=== PATIENT | male | born 1990 | race Two or more races ===

== ENCOUNTER 2019-07-29 17:51 | Emergency (ER) | payer OTHER ==
[~2019-07-29] VITALS: Ht 180.3 cm; Wt 81.6 kg
[2019-07-29 17:55] VITALS: BP 118/55
--- NOTE | 2019-07-29 17:55 | NUR ---
ED Nurse Note: Pt from street and brought in by RA 861 due to abd pain x 2 days. No reports of N/V. Pt staes he had a "brain surgery" 2 weeks ago. No incision or sutures noted. Pt also c/o head "convulsions" when he sleeps. AAO x4, ambulatory with non labored breathing. Pt smells with a very bad body odor and clothes are soiled.
[2019-07-29 19:01] LABS: BASOPHILS % (AUTO) 0.4 % (0.0-2.0); EOSINOPHILS % (AUTO) 1.8 % (0.0-3.0); HEMATOCRIT 38.4 % (42.0-52.0); HEMOGLOBIN 12.4 G/DL (14.2-18.0); LYMPHOCYTES % (AUTO) 24.8 % (20.0-45.0); MEAN CORPUSCULAR VOLUME 85 FL (80-99); MONOCYTES % (AUTO) 4.7 % (1.0-10.0); NEUTROPHILS % (AUTO) 68.3 % (45.0-75.0); PLATELET COUNT 337 K/UL (150-450); RED CELL DISTRIBUTION WIDTH 14.2 % (11.6-14.8); WHITE BLOOD COUNT 8.9 K/UL (4.8-10.8)
--- NOTE | 2019-07-29 19:11 | Diagnostic Imaging Report ---
Indications: Seizure, headache Technique: Spiral acquisitions obtained through the brain. Angled axial and coronal 5 x 5 mm slices were reconstructed. Total dose length product 1018 mGycm. CTDI vol(s) 53 mGy. Dose reduction achieved using automated exposure control Comparison: None. Findings: No acute intracranial hemorrhage or edema. No mass effect nor midline shift. Normal marroquin-white differentiation. Normal size ventricles and extra axial CSF spaces. Visualized orbits and sinuses are unremarkable. The mastoids are clear. The calvarium is intact. Impression: Negative The CT scanner at [facility] is accredited by the [employer] and the scans are performed using protocols designed to limit radiation exposure to as low as reasonably achievable to attain images of sufficient resolution adequate for diagnostic evaluation.
--- NOTE | 2019-07-29 19:26 | NUR ---
HAND-OFF: Report given to ashley SIGALA.
[2019-07-29 19:36] LABS: ANION GAP 14 mmol/L (5-15); BLOOD UREA NITROGEN 15 mg/dL (7-18); CALCIUM 8.9 MG/DL (8.5-10.1); CARBON DIOXIDE 23 MMOL/L (21-32); CHLORIDE 107 MMOL/L (98-107); CREATININE 0.8 MG/DL (0.55-1.30); POTASSIUM 3.9 MMOL/L (3.5-5.1); SODIUM 144 MMOL/L (136-145)
[2019-07-29 19:40] LABS: ALANINE AMINOTRANSFERASE 59 U/L (12-78); ALBUMIN 2.9 G/DL (3.4-5.0); ALBUMIN/GLOBULIN RATIO 0.9 (1.0-2.7); ALKALINE PHOSPHATASE 87 U/L (46-116); ASPARTATE AMINO TRANSFERASE 24 U/L (15-37); BILIRUBIN,TOTAL 0.2 MG/DL (0.2-1.0)
--- NOTE | 2019-07-29 20:05 | NUR ---
ED Nurse Note: Patient urine specimen collected and sent down to lab. Per patient request, patient provided with water, a sandwich, chips and an orange. Will continue to monitor for lab results. patient resting comfortably A&ox4 with no complaints at this time.
[2019-07-29 20:11] LABS: APPEARANCE,URINE CLEAR; BILIRUBIN, URINE NEGATIVE (NEGATIVE); COLOR,URINE AMBER; GLUCOSE, URINE (UA) NEGATIVE (NEGATIVE); KETONES,URINE 1+ (NEGATIVE); LEUKOCYTE ESTERASE ,URINE 1+ (NEGATIVE); NITRITE,URINE NEGATIVE (NEGATIVE); PH,URINE 5 (4.5-8.0); PROTEIN,URINE NEGATIVE (NEGATIVE); UROBILINOGEN,URINE 1 MG/DL (0.0-1.0)
--- NOTE | 2019-07-29 21:05 | NUR ---
ED Nurse Note: Patient resting comfortably with no signs or symptoms of acute distress.
--- NOTE | 2019-07-29 21:40 | Emergency Room Report ---
History of Present Illness General Chief Complaint: Abdominal Pain Source: Patient, EMS Present Illness HPI Patient presents from the street. He is homeless. He states that he has noticed whenever he falls asleep he gets shaking and spasms in his muscles. He denies recent illness. Denies fever chills. Denies nausea or vomiting. He states he occasionally gets lightheaded. He does have a history of non-Hodgkin' s lymphoma and was treated 5 years ago with [facility]/Syl Gomez. He does not get regular follow-up with any physician. He has no other complaints. Allergies: Coded Allergies: No Known Allergies (Unverified , 07/29/19) Patient History Past Medical History: none, see triage record, other - Hx NHL Social History: Reports: drug use; Denies: smoking, alcohol use Reviewed Nursing Documentation: PMH: Agreed; PSxH: Agreed Nursing Documentation-PMH Past Medical History: No Stated History Review of Systems All Other Systems: negative except mentioned in HPI Physical Exam Vital Signs Date Time Temp Pulse Resp B/P (MAP) Pulse Ox O2 Delivery O2 Flow Rate FiO2 07/29/19 17:49 98.4 127 14 120/80 (93) 98 Room Air Sp02 EP Interpretation: reviewed, normal General Appearance: no apparent distress, alert, GCS 15, non-toxic, other - Poor personal hygiene Head: normocephalic, atraumatic Eyes: bilateral eye normal inspection, bilateral eye PERRL ENT: hearing grossly normal, normal pharynx, no angioedema, normal voice Neck: full range of motion, supple/symm/no masses Respiratory: chest non-tender, lungs clear, normal breath sounds, no respiratory distress, no retraction, no accessory muscle use, speaking full sentences Cardiovascular #1: regular rate, rhythm, no edema Gastrointestinal: normal bowel sounds, non tender, soft, non-distended, no guarding, no rebound Rectal: deferred Musculoskeletal: back normal, normal range of motion, gait/station normal, non- tender Neurologic: alert, motor strength/tone normal, oriented x3, sensory intact, responsive, speech normal Psychiatric: judgement/insight normal, memory normal, mood/affect normal, no suicidal/homicidal ideation Medical Decision Making Homeless Attestation The treating physician has assessed and agrees that the patient is medically stable for outpatient disposition. Diagnostic Impression: Primary Impression: Myoclonic jerking while sleeping Additional Impression: Amphetamine abuse ER Course This patient has sleep transition mild clonus. Laboratory work-up is unremarkable. The patient was given IV fluids and educated on the dangers of amphetamine abuse. I also educated the patient that given his history of non- Hodgkin's lymphoma that he should follow-up for repeat evaluation at [facility]. Laboratory Tests Test 07/29/19 18:52 07/29/19 19:50 White Blood Count 8.9 K/UL (4.8-10.8) Red Blood Count 4.50 M/UL (4.70-6.10) L Hemoglobin 12.4 G/DL (14.2-18.0) L Hematocrit 38.4 % (42.0-52.0) L Mean Corpuscular Volume 85 FL (80-99) Mean Corpuscular Hemoglobin 27.5 PG (27.0-31.0) Mean Corpuscular Hemoglobin Concent 32.2 G/DL (32.0-36.0) Red Cell Distribution Width 14.2 % (11.6-14.8) Platelet Count 337 K/UL (150-450) Mean Platelet Volume 6.2 FL (6.5-10.1) L Neutrophils (%) (Auto) 68.3 % (45.0-75.0) Lymphocytes (%) (Auto) 24.8 % (20.0-45.0) Monocytes (%) (Auto) 4.7 % (1.0-10.0) Eosinophils (%) (Auto) 1.8 % (0.0-3.0) Basophils (%) (Auto) 0.4 % (0.0-2.0) Sodium Level 144 MMOL/L (136-145) Potassium Level 3.9 MMOL/L (3.5-5.1) Chloride Level 107 MMOL/L (98-107) Carbon Dioxide Level 23 MMOL/L (21-32) Anion Gap 14 mmol/L (5-15) Blood Urea Nitrogen 15 mg/dL (7-18) Creatinine 0.8 MG/DL (0.55-1.30) Estimate Glomerular Filtration Rate > 60 mL/min (>60) Glucose Level 130 MG/DL (74-106) H Calcium Level 8.9 MG/DL (8.5-10.1) Total Bilirubin 0.2 MG/DL (0.2-1.0) Aspartate Amino Transferase (AST) 24 U/L (15-37) Alanine Aminotransferase (ALT) 59 U/L (12-78) Alkaline Phosphatase 87 U/L (46-116) Total Protein 6.1 G/DL (6.4-8.2) L Albumin 2.9 G/DL (3.4-5.0) L Globulin 3.2 g/dL Albumin/Globulin Ratio 0.9 (1.0-2.7) L Lipase 164 U/L (73-393) Serum Alcohol < 3 mg/dL Urine Color Brittany Urine Appearance Clear Urine pH 5 (4.5-8.0) Urine Specific [place] 1.025 (1.005-1.035) Urine Protein Negative (NEGATIVE) Urine Glucose (UA) Negative (NEGATIVE) Urine Ketones 1+ (NEGATIVE) H Urine Blood Negative (NEGATIVE) Urine Nitrite Negative (NEGATIVE) Urine Bilirubin Negative (NEGATIVE) Urine Ictotest Negative (NEGATIVE) Urine Urobilinogen 1 MG/DL (0.0-1.0) H Urine Leukocyte Esterase 1+ (NEGATIVE) H Urine RBC 0 /HPF (0 - 0) Urine WBC 5-10 /HPF (0 - 0) H Urine Squamous Epithelial Cells Occasional /LPF Urine Calcium Oxalate Crystals Many /LPF (NONE) Urine Bacteria Occasional /HPF (NONE) Urine Mucus Few /LPF (NONE/OCC) H Urine Opiates Screen Negative (NEGATIVE) Urine Barbiturates Screen Negative (NEGATIVE) Phencyclidine (PCP) Screen Negative (NEGATIVE) Urine Amphetamines Screen Positive (NEGATIVE) H Urine Benzodiazepines Screen Negative (NEGATIVE) Urine Cocaine Screen Negative (NEGATIVE) Urine Marijuana (THC) Screen Negative (NEGATIVE) CT/MRI/US Diagnostic Results CT/MRI/US Diagnostic Results : Imaging Test Ordered: CT head Impression No acute findings. Specifically no intracranial bleed, mass effect or edema. See official report. Last Vital Signs Date Time Temp Pulse Resp B/P (MAP) Pulse Ox O2 Delivery O2 Flow Rate FiO2 07/29/19 17:55 98.4 105 17 118/55 99 Room Air Status: improved Disposition: HOME, SELF-CARE Condition: Improved Scripts No Active Prescriptions or Reported Meds Referrals: NON PHYSICIAN (PCP) Floridalma Austin DO Jul 29, 2019 21:40
[2019-07-29 21:43] VITALS: BP 118/55
--- NOTE | 2019-07-29 21:43 | NUR ---
ER DISCHARGE NOTE: Patient is cleared to be discharged per ERMD, pt is aox4, on room air, with stable vital signs. pt was given dc and prescription instructions, pt was able to verbalize understanding, pt id band and iv site removed without complications. Patient provided with a clean shirt and shoes. . pt is able to ambulate with steady gait. pt took all belongings.
== END 2019-07-29 21:43 | disposition home or self-care (01) ==
LOC: EDBD 17:51 → EMR 19:13
DX: G25.3 Myoclonus (principal); G47.69 Other sleep related movement disorders; F15.10 Other stimulant abuse, uncomplicated; Z59.0 Homelessness; Z85.72 Personal history of non-Hodgkin lymphomas
CPT/HCPCS: 36415; 70450; 80053; 80307; 81003; 83690; 85025; G0480; Z7502; 99284

== ENCOUNTER → 2019-07-30 | Emergency (ER) | payer OTHER ==
[~2019-07-30] VITALS: Ht 180.3 cm; Wt 72.6 kg
[~2019-07-30] MED LIST: IBUPROFEN600 MG ORAL; LIDODERM700 M1 TOPIC
[2019-07-30 12:26] VITALS: BP 118/74
--- NOTE | 2019-07-30 12:30 | NUR ---
ED Nurse Note: pt. ambulated to ed; came back again saying "i had convultions again". Placed on chair, assessed pt to 'be speaking to himself'. will continue to monitor.
--- NOTE | 2019-07-30 14:05 | Emergency Room Report ---
History of Present Illness General Chief Complaint: General Complaint Source: Patient Present Illness HPI 29 YO male presents to the ED c/o another unwitnessed seizure earlier today. He states he was even convulsing while waiting for examination here in the ED. Pt. denies LOC. He denies ETOH use. He has hx of Meth use. Pt. Is not formally dx'd with seizures. Denies ever being examined by a neurologist. Denies neck pain/ stiffness or HARMAN with photophobia. Denies hx of TBI. Had a full work up this morning here in the ED. Pt. is not currently rx'd any anti-epileptic medications. Denies CP, SOB, LOC, AMS. He denies pain at this time. Pt. reports he is still having some residual shakiness. No other aggravating or relieving factors at this time. Denies weakness or inability to ambulate on his own. Allergies: Coded Allergies: No Known Allergies (Unverified , 07/29/19) Patient History Past Medical History: see triage record Past Surgical History: none Pertinent Family History: none Reviewed Nursing Documentation: PMH: Agreed; PSxH: Agreed Nursing Documentation-PMH Past Medical History: No History, Except For Hx Seizures: Yes Review of Systems All Other Systems: negative except mentioned in HPI Physical Exam Vital Signs Date Time Temp Pulse Resp B/P (MAP) Pulse Ox O2 Delivery O2 Flow Rate FiO2 07/30/19 12:23 98.2 100 18 118/74 (89) 99 Room Air Sp02 EP Interpretation: reviewed, normal General Appearance: no apparent distress, alert, GCS 15, non-toxic, other - mildly disheveled with poor hygiene Head: normocephalic, atraumatic Eyes: bilateral eye normal inspection, bilateral eye PERRL, bilateral eye other - no photophobia ENT: hearing grossly normal, normal voice Neck: full range of motion, no meningismus, no bony tend Respiratory: chest non-tender, lungs clear, normal breath sounds, no rhonchi, no respiratory distress, no accessory muscle use, no wheezing, speaking full sentences Cardiovascular #1: regular rate, rhythm Rectal: deferred, other - No visible evidence of soilage Genitourinary: normal inspection, other - NO evidence of recent urinary incontinence. Musculoskeletal: back normal, normal range of motion, gait/station normal, non- tender Neurologic: alert, motor strength/tone normal, oriented x3, sensory intact, responsive, speech normal, no focal defects, other - no nystagmus, normal finger to nose. Psychiatric: judgement/insight normal, memory normal Skin: other - Moderately contaminated, no abrasions or lacerations. Medical Decision Making PA Attestation Dr. Norwood Is my supervising Physician whom patient management has been discussed with. Diagnostic Impression: Primary Impression: Tremor due to substance abuse Additional Impression: Encounter for medical screening examination ER Course 29 YO male presents to the ED c/o another unwitnessed seizure earlier today. He states he was even convulsing while waiting for examination here in the ED. Pt. denies LOC. He denies ETOH use. He has hx of Meth use. Pt. Is not formally dx'd with seizures. Denies ever being examined by a neurologist. Denies neck pain/ stiffness or HARMAN with photophobia. Denies hx of TBI. Had a full work up this morning here in the ED. Pt. is not currently rx'd any anti-epileptic medications. Denies CP, SOB, LOC, AMS. He denies pain at this time. Pt. reports he is still having some residual shakiness. No other aggravating or relieving factors at this time. Denies weakness or inability to ambulate on his own. Ddx considered but are not limited to seizure, meningitis, infection, CVA/TIA, intracranial hemorrhage, intracranial process, benign essential tremor, drug- induced tremor, withdrawal symptoms, and malingering just to name a few. Vital signs: he is afebrile, vital signs are WNL, HR 100 in triage, 96 on EKG. H&PE are most consistent with Normal Physical Exam.-Patient is not in a post- ictal state, incontinent he has no oral trauma. Patient denies full loss of consciousness. No focal neurological deficits. Mild tremor on exam. NAD, non- toxic in appearance. ORDERS: No labs or imaging were ordered as patient just had labs and imaging performed less than 24 hours ago here in the emergency department and all were within normal range after reviewing Chart for this patient's previous visit. EKG shows 96 bpm NSR. ED INTERVENTIONS: -None required at this time. None required at this time.-I do not believe that this patient is having full tonic-clonic seizures as there are no evidence on physical exam. Patient is not in a post-ictal state, incontinent he has no oral trauma. Patient denies full loss of consciousness. I believe that this patient is inappropriately using the term "convulsions" to describe his symptoms of benign essential tremor -like movements most likely secondary to drug use. -I do not identify an emergent condition at this time. With current presentation , pt. is stable for close outpatient follow up and conservative treatment. D/ w pt. to return promptly to ED with worsening or new symptoms.- Pt. verbalizes' understanding and agreement with proposed treatment plan. DISCHARGE: At this time pt. is stable for d/c to home. Will provide printed patient care instructions, and any necessary prescriptions. Care plan and follow up instructions have been discussed with the patient prior to discharge. EKG Diagnostic Results EP Interpretation: Dr. Norwood Rate: normal - 96 bpm Rhythm: NSR ST Segments: no acute changes ASA given to the pt in ED: No PA Scribe Text This Interpretation was scribed by WANDA Perez. Last Vital Signs Date Time Temp Pulse Resp B/P (MAP) Pulse Ox O2 Delivery O2 Flow Rate FiO2 07/30/19 12:26 98.2 18 118/74 99 Room Air 07/30/19 12:26 100 Disposition: HOME, SELF-CARE Condition: Stable Scripts No Active Prescriptions or Reported Meds Referrals: [facility] + [facility] Patient Instructions: Essential Tremor, Medical Screening Exam Additional Instructions: Take medications as directed. Follow up with a Primary Care Provider in 3-5 days For a referral to have NEUROLOGIST Evaluation, even if your symptoms have resolved. --Please review list of primary care clinics, if you do not already have a primary care provider Return sooner to ED if new symptoms occur, or current symptoms become worse. - Please note that this Emergency Department Report was dictated using [email or web address] agent technology software, occasionally this can lead to erroneous entry secondary to interpretation by the dictation equipment. Noa Perez Jul 30, 2019 14:05
[2019-07-30 14:13] VITALS: BP 120/78
--- NOTE | 2019-07-30 14:13 | NUR ---
ER DISCHARGE NOTE: Patient is cleared to be discharged per ERMD, pt is aox3, on room air, with stable vital signs. pt was given dc and prescription instructions, pt was able to verbalize understanding, pt id band removed. pt is able to ambulate with steady gait. pt took all belongings.
== END | disposition home or self-care (01) ==
LOC: EMR 14:00
DX: G25.1 Drug-induced tremor (principal); T50.905A Adverse effect of unspecified drugs, medicaments and biological substances, initial encounter; F15.90 Other stimulant use, unspecified, uncomplicated; Y92.9 Unspecified place or not applicable; Z13.9 Encounter for screening, unspecified
CPT/HCPCS: 93005; Z7502; 99281

== ENCOUNTER 2019-08-09 20:44 | Emergency (ER) | payer OTHER ==
[~2019-08-09] VITALS: Ht 177.8 cm; Wt 72.6 kg
[2019-08-09 21:00] VITALS: BP 144/94
--- NOTE | 2019-08-09 21:00 | NUR ---
ED Nurse Note: Pt brought in by [facility] for c/o convulsions. Pt called [address] because he feels shaky and has convulsions when he tries to sleep. No witnessed seizure activity or s/s of seziure. Pt has hx of substance abuse. Pt is aaox4, no acute distress noted.
--- NOTE | 2019-08-09 21:54 | Emergency Room Report ---
History of Present Illness General Chief Complaint: Behavioral Complaint Source: Patient Present Illness HPI This 29-year-old male with no significant past medical history. He is with complaint of convulsion. He said he gets shaky whenever he lays down. He was here couple weeks ago for the same thing twice. No witnessed seizure. No history of seizure. Denies any other complaint. He called [address] Denies any pain. Does have a history of methamphetamine abuse. Allergies: Coded Allergies: No Known Allergies (Unverified , 07/29/19) Patient History Past Medical History: see triage record, old chart reviewed Past Surgical History: none Pertinent Family History: none Social History: Reports: smoking, drug use Immunizations: other Reviewed Nursing Documentation: PMH: Agreed; PSxH: Agreed Nursing Documentation-PMH Past Medical History: No History, Except For History Of Psychiatric Problem: Yes - Bipolar Hx Seizures: Yes Review of Systems Eye: Denies: eye pain, blurred vision ENT: Denies: ear pain, nose congestion, throat swelling Respiratory: Denies: cough, shortness of breath Cardiovascular: Denies: chest pain, palpitations Gastrointestinal: Denies: abdominal pain, diarrhea, nausea, vomiting Musculoskeletal: Denies: back pain, joint pain Skin: Denies: rash Neurological: Denies: headache, numbness Endocrine: Denies: increased thirst, increased urine Hematologic/Lymphatic: Denies: easy bruising All Other Systems: negative except mentioned in HPI Physical Exam Vital Signs Date Time Temp Pulse Resp B/P (MAP) Pulse Ox O2 Delivery O2 Flow Rate FiO2 08/09/19 20:46 97.0 100 16 144/94 (111) 99 Room Air Vitals unremarkable Sp02 EP Interpretation: reviewed, normal General Appearance: well appearing, no apparent distress, alert Head: normocephalic, atraumatic Eyes: bilateral eye PERRL, bilateral eye EOMI ENT: hearing grossly normal, normal pharynx Neck: full range of motion, supple, no meningismus Respiratory: chest non-tender, lungs clear, normal breath sounds Cardiovascular #1: regular rate, rhythm, no murmur Gastrointestinal: normal bowel sounds, non tender, no mass, no organomegaly, no bruit, non-distended Musculoskeletal: back normal, normal range of motion, gait/station normal Psychiatric: mood/affect normal Medical Decision Making Diagnostic Impression: Primary Impression: Tremor due to substance abuse ER Course Patient presents with "convulsion". I see no evidence of seizure activity. This is probably muscle spasm or jerking. No need for treatment. Will discharge home. No criteria for 5150. Last Vital Signs Date Time Temp Pulse Resp B/P (MAP) Pulse Ox O2 Delivery O2 Flow Rate FiO2 08/09/19 20:46 97.0 100 16 144/94 (111) 99 Room Air Status: unchanged Disposition: HOME, SELF-CARE Condition: Stable Scripts No Active Prescriptions or Reported Meds Additional Instructions: Follow up with your doctor in 7 days but return if worse. Stop using drugs. Colt Arias MD Aug 09, 2019 21:54
[2019-08-09 22:00] VITALS: BP 136/89
--- NOTE | 2019-08-09 22:00 | NUR ---
ER DISCHARGE NOTE: Patient is cleared to be discharged per ERMD, pt is aox4, on room air, with stable vital signs. pt was given dc instructions, pt was able to verbalize understanding, pt id band removed. pt is able to ambulate with steady gait. pt took all belongings.
== END 2019-08-09 22:00 | disposition home or self-care (01) ==
LOC: EDBD 20:44 → EDUNIT# 20:44 → EMR 21:13
DX: R25.1 Tremor, unspecified (principal); R56.9 Unspecified convulsions; F17.200 Nicotine dependence, unspecified, uncomplicated; G40.909 Epilepsy, unspecified, not intractable, without status epilepticus; F31.9 Bipolar disorder, unspecified
CPT/HCPCS: 99281

== ENCOUNTER 2019-08-10 08:21 | Emergency (ER) | payer OTHER ==
[~2019-08-10] VITALS: Ht 165.1 cm; Wt 74.8 kg
--- NOTE | 2019-08-10 08:39 | Emergency Room Report ---
History of Present Illness General Chief Complaint: General Complaint Source: Patient Present Illness HPI 29-year-old male presents with with with trouble concentrating x1 day no aggravating relieving factor severity is mild, constant patient has no other complaints states he want to be checked up Allergies: Coded Allergies: No Known Allergies (Unverified , 07/29/19) Patient History Past Medical History: see triage record Reviewed Nursing Documentation: PMH: Agreed; PSxH: Agreed Nursing Documentation-PMH History Of Psychiatric Problem: Yes - bipolar schizophrenia Hx Seizures: Yes Review of Systems All Other Systems: negative except mentioned in HPI Physical Exam Vital Signs Date Time Temp Pulse Resp B/P (MAP) Pulse Ox O2 Delivery O2 Flow Rate FiO2 08/10/19 08:23 98.2 79 16 132/75 (94) 100 Room Air Sp02 EP Interpretation: reviewed, normal General Appearance: well appearing, no apparent distress, alert Head: normocephalic, atraumatic Eyes: bilateral eye PERRL, bilateral eye EOMI ENT: uvula midline, moist mucus membranes Neck: supple, thyroid normal, supple/symm/no masses Respiratory: lungs clear, no respiratory distress, no retraction, no accessory muscle use Cardiovascular #1: normal peripheral pulses, regular rate, rhythm, no edema, no gallop, no murmur Gastrointestinal: non tender, soft, no guarding, no rebound Musculoskeletal: normal inspection Neurologic: alert, oriented x3 Psychiatric: mood/affect normal Skin: no rash, warm/dry Medical Decision Making Diagnostic Impression: Primary Impression: Encounter for medical screening examination ER Course 29-year-old male presents to the ED with trouble concentrating, differential diagnosis includes malingering, drug use, ADHD No acute emergencies at this time, patient appears to come to the ED when it rains currently is raining outside patient was sleeping comfortably prior to being interviewed Disposition home with return precautions follow-up with PCP Last Vital Signs Date Time Temp Pulse Resp B/P (MAP) Pulse Ox O2 Delivery O2 Flow Rate FiO2 08/10/19 08:23 98.2 79 16 132/75 (94) 100 Room Air Disposition: HOME, SELF-CARE Condition: Stable Scripts No Active Prescriptions or Reported Meds Referrals: [facility],REFERRING (PCP) [facility] Patient Instructions: Medical Screening Exam Additional Instructions: The patient was provided with discharge instructions, notified to follow-up with a primary care doctor and or specialist in the next 24-48 hours, and to return to the ED if they have worsening of their symptoms. Please note that this report is being documented using [employer] technology. This can lead to erroneous entry secondary to incorrect interpretation by the dictating instrument. Olaf Samano MD Aug 10, 2019 08:39
[2019-08-10 08:50] VITALS: BP 127/71
--- NOTE | 2019-08-10 08:50 | NUR ---
ED Nurse Note: Pt walked into ED for c/o difficulty concentrating. Pt is alert and orientedx4, drowsy. Pt has PERLLA. Pt denies being homeless and provided address for home. Pt denies nausea, vomiting. Dr Samano has seen pt.
[2019-08-10 09:02] VITALS: BP 135/76
--- NOTE | 2019-08-10 09:03 | NUR ---
ER DISCHARGE NOTE: Patient is cleared to be discharged per ERMD, pt is aox4, on room air, with stable vital signs. pt was given dc and prescription instructions, pt was able to verbalize understanding, pt id band removed. pt is able to ambulate with steady gait. pt took all belongings.
== END 2019-08-10 09:03 | disposition home or self-care (01) ==
LOC: EMR 08:31
DX: Z00.00 Encounter for general adult medical examination without abnormal findings (principal); G40.909 Epilepsy, unspecified, not intractable, without status epilepticus; F31.9 Bipolar disorder, unspecified
CPT/HCPCS: 99281

== ENCOUNTER 2019-08-16 19:23 | Emergency (ER) | payer OTHER ==
[~2019-08-16] VITALS: Ht 167.6 cm; Wt 63.5 kg
[2019-08-16 19:45] VITALS: BP 126/88
--- NOTE | 2019-08-16 19:45 | NUR ---
ED Nurse Note: Patient walked in c/o "convusions". pt stated he does not feel good and wants to be checked out. AAO xe4, VSS at this time.
--- NOTE | 2019-08-16 19:52 | Emergency Room Report ---
History of Present Illness General Chief Complaint: General Complaint Present Illness HPI 29-year-old male appears to be homeless who was just seen here [facility] for similar complaint here complaining of not feeling well in general for many months. Patient appears to come here on y days, does not know any past medical history, sitting comfortably with stable vital signs. Denies any recent travel, fever and chills. Denies chest pain. Denies drug use, tobacco smoke. COVID-19 risk:Travel to affect: No Has patient experienced fitch: No Allergies: Coded Allergies: No Known Allergies (Unverified , 07/29/19) Patient History Past Medical History: see triage record Past Surgical History: none Pertinent Family History: none Immunizations: UTD Reviewed Nursing Documentation: PMH: Agreed; PSxH: Agreed Nursing Documentation-PMH Hx Seizures: Yes Review of Systems All Other Systems: negative except mentioned in HPI Physical Exam Vital Signs Date Time Temp Pulse Resp B/P (MAP) Pulse Ox O2 Delivery O2 Flow Rate FiO2 08/16/19 19:30 98.1 96 16 126/88 (101) 98 Room Air Sp02 EP Interpretation: reviewed, normal General Appearance: no apparent distress, alert, GCS 15, non-toxic Head: normocephalic, atraumatic Eyes: bilateral eye normal inspection, bilateral eye PERRL ENT: hearing grossly normal, normal pharynx, no angioedema, normal voice Neck: full range of motion, supple/symm/no masses Respiratory: chest non-tender, lungs clear, normal breath sounds, speaking full sentences Cardiovascular #1: regular rate, rhythm, no edema Gastrointestinal: non tender, soft Rectal: deferred Genitourinary: no CVA tenderness Musculoskeletal: back normal Neurologic: alert, motor strength/tone normal, oriented x3, sensory intact, responsive, speech normal Psychiatric: judgement/insight normal, memory normal, mood/affect normal, no suicidal/homicidal ideation Skin: no rash Lymphatic: no adenopathy Medical Decision Making PA Attestation All my diagnosis and treatment plans were reviewed ad discussed with my supervising physician Dr. Austin Diagnostic Impression: Primary Impression: Encounter for medical screening examination ER Course 29-year-old male appears to be homeless who was just seen here [facility] for similar complaint here complaining of not feeling well in general for many months. Patient appears to come here on rainy days, does not know any past medical history, sitting comfortably with stable vital signs. Denies any recent travel, fever and chills. Denies chest pain. Denies drug use, tobacco smoke. Ddx considered but are not limited to: generalized anxiety disorder, panic attack, depression with psychotic feature, bipolar disorder, drug overdose Vital signs: are WNL, pt. is afebrile H&PE are most consistent with: Encounter for medical screening examination ORDERS: none required at this time, the diagnosis is clinical ED INTERVENTIONS: None required at this time. DISCHARGE: At this time pt. is stable for d/c to home. Will provide printed patient care instructions, and any necessary prescriptions. Care plan and follow up instructions have been discussed with the patient prior to discharge. Patient to follow primary care doctor Last Vital Signs Date Time Temp Pulse Resp B/P (MAP) Pulse Ox O2 Delivery O2 Flow Rate FiO2 08/16/19 19:30 98.1 96 16 126/88 (101) 98 Room Air Disposition: HOME, SELF-CARE Condition: Stable Scripts No Active Prescriptions or Reported Meds Additional Instructions: You need to follow-up with primary care doctor, you were seen here with the same complaint few days ago, this is chronic issue and just by saying that you have not generally been feeling well for several months your history, no fever, no other complaints and otherwise vital signs stable no further imaging is needed. Christianne Gregory Aug 16, 2019 19:52
[2019-08-16 20:00] VITALS: BP 126/88
--- NOTE | 2019-08-16 20:00 | NUR ---
ED Nurse Note: Pt cleared by health care Provider for discharge. DC instructions/prescription was given and explained to pt and verbalized understanding of teachings. All medical deviecs such as ID band removed. Pt is AAO x4, ambulatory and left with all personal belongings.
== END 2019-08-16 20:00 | disposition home or self-care (01) ==
LOC: EMR 20:00
DX: R69 Illness, unspecified (principal); Z59.0 Homelessness; G40.909 Epilepsy, unspecified, not intractable, without status epilepticus
CPT/HCPCS: 99281

== ENCOUNTER 2019-08-18 20:36 | Emergency (ER) | payer OTHER ==
[~2019-08-18] VITALS: Ht 157.5 cm; Wt 68.0 kg
[2019-08-18 20:52] VITALS: BP 130/88
--- NOTE | 2019-08-18 20:52 | NUR ---
ED Nurse Note: Pt walked in to ED from street c/o feeling foggy and head not being clear. Patient reports history of bipolar and does not take medication. Patient has strong body odor and appears to be transient but reports living with his brother. Denies pain or any discomfort. Alert adn orientedx4.
[2019-08-18 21:00] VITALS: BP 130/88
--- NOTE | 2019-08-18 21:00 | NUR ---
ED Nurse Note: Pt cleared by ERMD for discharge. DC instructions was given and explained to pt and verbalized understanding of teachings. All medical deviecs such as ID band removed. Pt is AAO x4, ambulatory and left with all personal belongings. Pt was provided snacks and placement options.
--- NOTE | 2019-08-18 21:00 | Emergency Room Report ---
History of Present Illness General Chief Complaint: Male Urogenital Problems Source: Patient Present Illness HPI Patient presents with complaints of 'fogginess' Patient reports that he would like a CAT scan Denies any chest pain denies any back or flank pain There was question of reporting shortness of breath to the triage however it denies that at this time Denies any cough denies any vomiting or diarrhea COVID-19 risk:Contact w/high r: No COVID-19 risk:Travel to affect: No Has patient experienced fitch: Yes Coronavirus symptoms experienc: Shortness of Breath Allergies: Coded Allergies: No Known Allergies (Unverified , 07/29/19) Patient History Past Medical History: see triage record Reviewed Nursing Documentation: PMH: Agreed; PSxH: Agreed Nursing Documentation-PMH History Of Psychiatric Problem: Yes - bipolar Hx Seizures: Yes Review of Systems All Other Systems: negative except mentioned in HPI Physical Exam Vital Signs Date Time Temp Pulse Resp B/P (MAP) Pulse Ox O2 Delivery O2 Flow Rate FiO2 08/18/19 20:45 97.7 93 16 130/88 (102) 98 Room Air Sp02 EP Interpretation: reviewed, normal General Appearance: well appearing, no apparent distress - However somewhat disheveled Head: normocephalic, atraumatic Eyes: bilateral eye PERRL, bilateral eye EOMI ENT: hearing grossly normal, normal pharynx, TMs + canals normal, uvula midline Neck: full range of motion, supple, no meningismus, no bony tend Respiratory: lungs clear, normal breath sounds, no rhonchi, no respiratory distress, no retraction, no accessory muscle use Cardiovascular #1: normal peripheral pulses, regular rate, rhythm, no edema, no gallop, no JVD, no murmur Gastrointestinal: normal bowel sounds, non tender, soft, no mass, no organomegaly, non-distended, no guarding, no hernia, no pulsatile mass, no rebound Musculoskeletal: normal inspection Neurologic: motor strength/tone normal, fisher purse seine III-XII nml as tested, oriented x3 , sensory intact, responsive Psychiatric: mood/affect normal Skin: no rash Lymphatic: normal inspection, no adenopathy Medical Decision Making Diagnostic Impression: Primary Impression: weakness ER Course Patient has a medical screening evaluation performed Multiple differentials including but not limited to neurological, neurosurgical , infectious process entertained on review of medical records patient has been here Several times in the recent past had CT imaging done also Less than a month ago Patient has a benign neurological exam as indicated does not meet criteria for further work-up and is encouraged to follow-up with primary physician Last Vital Signs Date Time Temp Pulse Resp B/P (MAP) Pulse Ox O2 Delivery O2 Flow Rate FiO2 08/18/19 20:45 97.7 93 16 130/88 (102) 98 Room Air Status: unchanged Disposition: HOME, SELF-CARE Condition: Stable Scripts No Active Prescriptions or Reported Meds Referrals: [facility] Patient Instructions: Weakness, [id number] Additional Instructions: Patient is provided with the discharge instructions notified to follow up with primary doctor in the next 2-3 days otherwise return to the er with any worsening symptoms. Please note that this report is being documented using Gather technology. This can lead to erroneous entry secondary to incorrect interpretation by the dictating instrument. Prema Palacios DO Aug 18, 2019 21:00
== END 2019-08-18 21:00 | disposition home or self-care (01) ==
LOC: EMR 21:00
DX: R53.1 Weakness (principal); G40.909 Epilepsy, unspecified, not intractable, without status epilepticus; F31.9 Bipolar disorder, unspecified; R06.02 Shortness of breath
CPT/HCPCS: 99281

== ENCOUNTER 2019-08-25 19:38 | Emergency (ER) | payer OTHER ==
[~2019-08-25] VITALS: Ht 172.7 cm; Wt 65.8 kg
[2019-08-25 19:50] VITALS: BP 128/76
--- NOTE | 2019-08-25 19:50 | NUR ---
ED Nurse Note: Pt ambulated into Ed from home CO lower back pain 01/09. Pt states that he is unsure how long the pain has lasted and cannot recall what caused the pain. ERMD at bedside, VSS no ss of distress noted.
[2019-08-25] MEDS ORDERED: Ketorolac 30mg Inj IM ONE (20:00)
--- NOTE | 2019-08-25 20:00 | NUR ---
ED Nurse Note: All medications administered, no ss of distress noted. no adverse reactions noted. minicog completed.
[2019-08-25] MEDS ORDERED: LIDODERM700 M1 TOPIC (20:13)
[2019-08-25] MEDS ORDERED: IBUPROFEN600 MG ORAL (20:13)
[2019-08-25 20:16] VITALS: BP 128/76
--- NOTE | 2019-08-25 20:16 | NUR ---
ER DISCHARGE NOTE: Patient is cleared to be discharged home per ERMD, pt is aox4, on room air, with stable vital signs. pt was given dc and prescription instructions, pt was able to verbalize understanding, pt id band removed. pt is able to ambulate with steady gait. pt took all belongings.
--- NOTE | 2019-08-31 21:50 | Emergency Room Report ---
History of Present Illness General Chief Complaint: Back Pain-No Injury Source: Patient Present Illness HPI 29-year-old male presents ED complaining of back pain. Is been having pain on and off for several weeks now. Did not fall or injure himself. Dull, 7 out of 10, nonradiating. Worse with twisting and bending. Denies any bowel or bladder incontinence. Denies any leg or motor weakness. No fevers or chills. No sick contacts or recent travel. No other aggravating relieving factors. No other associated symptoms Allergies: Coded Allergies: No Known Allergies (Unverified , 07/29/19) COVID-19 Screening Contact w/high risk pt: No Recent Travel to affected area: No Experienced COVID-19 symptoms?: Yes COVID-19 symptoms experienced: Shortness of Breath Patient History Past Medical History: seizures Past Surgical History: none Pertinent Family History: none Social History: Reports: drug use; Denies: smoking, alcohol use Immunizations: UTD Reviewed Nursing Documentation: PMH: Agreed; PSxH: Agreed Nursing Documentation-PMH Hx Seizures: Yes Review of Systems All Other Systems: negative except mentioned in HPI Physical Exam Sp02 EP Interpretation: reviewed, normal General Appearance: no apparent distress, alert, GCS 15, non-toxic Head: normocephalic, atraumatic Eyes: bilateral eye normal inspection, bilateral eye PERRL ENT: hearing grossly normal, normal pharynx, no angioedema, normal voice Neck: full range of motion, supple/symm/no masses Respiratory: chest non-tender, lungs clear, normal breath sounds, speaking full sentences Cardiovascular #1: regular rate, rhythm, no edema Cardiovascular #2: 2+ carotid (R), 2+ carotid (L), 2+ radial (R), 2+ radial (L) , 2+ dorsalis pedis (R), 2+ dorsalis pedis (L) Gastrointestinal: normal bowel sounds, non tender, soft, non-distended, no guarding, no rebound Rectal: deferred Genitourinary: normal inspection, no CVA tenderness Musculoskeletal: back normal, normal range of motion, gait/station normal, tender - paraspinal lumbar tenderness Neurologic: alert, motor strength/tone normal, oriented x3, sensory intact, responsive, speech normal Psychiatric: judgement/insight normal, memory normal, mood/affect normal, no suicidal/homicidal ideation Reflexes: 3+ bicep (R), 3+ bicep (L), 3+ tricep (R), 3+ tricep (L), 3+ knee (R) , 3+ knee (L) Lymphatic: no adenopathy Medical Decision Making Homeless Attestation I, The treating physician Dr. Fernando, have assessed and agrees that patient is medically stable for discharge to an outpatient disposition. Diagnostic Impression: Primary Impression: Back pain Qualified Codes: M54.5 - Low back pain; G89.29 - Other chronic pain ER Course Hospital Course 29-year-old male presents ED complaining of lower back pain. No evidence of trauma Differential diagnoses include: pyelonephritis, kidney stone, muscle strain, Lspine fracture Clinical course Patient placed on stretcher. After initial history exam reveals male in no acute distress. There is no midline tenderness. Paraspinal tenderness noted in the lumbar area. No swelling or bruising. No discoloration. No CVA tenderness. I ordered toradol and lidoderm for pain. Upon reassessment patient states pain has improved. homeless checklist completed. Safe for discharge for close outpatient follow-up. I will provide referrals Diagnosis - back pain Stable and discharged to home with prescription for motrin, lidoderm. Followup with PMD. Return to ED if symptoms recur or worsen Status: improved Disposition: HOME, SELF-CARE Condition: Stable Scripts No Active Prescriptions or Reported Meds Referrals: [facility]ERR[facility] (PCP) [facility] Patient Instructions: Back Pain, Adult Diego Fernando MD Aug 31, 2019 21:50
== END 2019-08-25 20:16 | disposition home or self-care (01) ==
LOC: EMR 19:50
DX: M54.5 Low back pain (principal); G89.29 Other chronic pain
CPT/HCPCS: 96372; J1885; Z7502; 99283

== ENCOUNTER 2019-08-29 14:15 | Emergency (ER) | payer OTHER ==
[~2019-08-29] VITALS: Ht 167.6 cm; Wt 63.5 kg
[2019-08-29 14:30] VITALS: BP 142/89
[2019-08-29 15:23] LABS: BASOPHILS % (AUTO) 1.1 % (0.0-2.0); EOSINOPHILS % (AUTO) 1.4 % (0.0-3.0); HEMOGLOBIN 13.9 G/DL (14.2-18.0); LYMPHOCYTES % (AUTO) 21.8 % (20.0-45.0); MEAN CORPUSCULAR VOLUME 84 FL (80-99); MONOCYTES % (AUTO) 5.4 % (1.0-10.0); NEUTROPHILS % (AUTO) 70.3 % (45.0-75.0); PLATELET COUNT 370 K/UL (150-450); RED BLOOD COUNT 5.01 M/UL (4.70-6.10); RED CELL DISTRIBUTION WIDTH 12.5 % (11.6-14.8); WHITE BLOOD COUNT 6.9 K/UL (4.8-10.8)
[2019-08-29 15:38] LABS: ANION GAP 12 mmol/L (5-15); BLOOD UREA NITROGEN 18 mg/dL (7-18); CALCIUM 9.1 MG/DL (8.5-10.1); CARBON DIOXIDE 23 MMOL/L (21-32); CHLORIDE 104 MMOL/L (98-107); CREATININE 0.8 MG/DL (0.55-1.30); POTASSIUM 4.5 MMOL/L (3.5-5.1); SODIUM 139 MMOL/L (136-145)
[2019-08-29 15:45] LABS: ALANINE AMINOTRANSFERASE 72 U/L (12-78); ALBUMIN 3.9 G/DL (3.4-5.0); ALBUMIN/GLOBULIN RATIO 1.1 (1.0-2.7); ALKALINE PHOSPHATASE 86 U/L (46-116); ASPARTATE AMINO TRANSFERASE 40 U/L (15-37); BILIRUBIN,TOTAL 0.2 MG/DL (0.2-1.0)
[2019-08-29] MEDS ORDERED: DICYCLOMINE HCL10 MG ORAL (16:22)
[2019-08-29] MEDS ORDERED: ONDANSETRON ODT4 MG BC (16:22)
[2019-08-29] MEDS ORDERED: OMEPRAZOLE20 M2 ORAL (16:22)
--- NOTE | 2019-09-01 07:11 | Emergency Room Report ---
History of Present Illness General Chief Complaint: Abdominal Pain Source: EMS Present Illness HPI Patient is a 29-year-old male who presents after increased epigastric pain. He reports having increased pain for 1 day. He denies any vomiting. Denies any recent alcohol intake. History is markedly limited by poor historian. Allergies: Coded Allergies: No Known Allergies (Unverified , 07/29/19) COVID-19 Screening Contact w/high risk pt: No Recent Travel to affected area: No Experienced COVID-19 symptoms?: No COVID-19 symptoms experienced: Shortness of Breath Patient History Past Medical History: see triage record Reviewed Nursing Documentation: PMH: Agreed; PSxH: Agreed Nursing Documentation-PMH Past Medical History: No Stated History Hx Seizures: Yes Review of Systems All Other Systems: negative except mentioned in HPI Physical Exam Vital Signs Date Time Temp Pulse Resp B/P (MAP) Pulse Ox O2 Delivery O2 Flow Rate FiO2 08/29/19 14:11 99.5 120 146/93 (110) Room Air 08/29/19 14:30 20 08/29/19 14:30 95 Sp02 EP Interpretation: reviewed, normal General Appearance: normal inspection, well appearing, no apparent distress, alert, GCS 15, non-toxic Head: atraumatic ENT: normal ENT inspection, hearing grossly normal, normal voice Neck: normal inspection, full range of motion, supple, no bony tend Respiratory: normal inspection, lungs clear, normal breath sounds, no respiratory distress, no retraction, no wheezing Cardiovascular #1: regular rate, rhythm, no edema Gastrointestinal: normal inspection, normal bowel sounds, non tender, soft, no guarding, no hernia Genitourinary: no CVA tenderness Musculoskeletal: normal inspection, back normal, normal range of motion Neurologic: alert, motor strength/tone normal, oil well logger III-XII nml as tested, responsive, speech normal, normal inspection Psychiatric: normal inspection, judgement/insight normal, mood/affect normal Medical Decision Making Diagnostic Impression: Primary Impression: Abdominal pain Qualified Codes: R10.13 - Epigastric pain ER Course Patient presented for abdominal pain. Differential diagnoses included ischemic bowel, appendicitis, perforated viscus, abdominal aortic aneurysm, inferior myocardial infarction, viral gastroenteritis among others.Because patient's complexity imaging studies, and laboratory testing ordered. Laboratory testing showed no significant acute abnormalities. Electrolytes were normal Lipase was normal White blood count was normal Patient was given medications for symptomatic management. Patient appears to be stable for close outpatient follow up. The patient is advised to follow up with primary care doctor in 1-2 days. Patient is advised to return if any worsening condition or if any changes in status that are concerning. This report is dictated with [employer] esl tutor software which may occasionally lead to discrepancies related to use of this software. Labs Test 08/29/19 14:30 White Blood Count 6.9 K/UL (4.8-10.8) Red Blood Count 5.01 M/UL (4.70-6.10) Hemoglobin 13.9 G/DL (14.2-18.0) Hematocrit 42.0 % (42.0-52.0) Mean Corpuscular Volume 84 FL (80-99) Mean Corpuscular Hemoglobin 27.8 PG (27.0-31.0) Mean Corpuscular Hemoglobin Concent 33.2 G/DL (32.0-36.0) Red Cell Distribution Width 12.5 % (11.6-14.8) Platelet Count 370 K/UL (150-450) Mean Platelet Volume 5.6 FL (6.5-10.1) Neutrophils (%) (Auto) 70.3 % (45.0-75.0) Lymphocytes (%) (Auto) 21.8 % (20.0-45.0) Monocytes (%) (Auto) 5.4 % (1.0-10.0) Eosinophils (%) (Auto) 1.4 % (0.0-3.0) Basophils (%) (Auto) 1.1 % (0.0-2.0) Sodium Level 139 MMOL/L (136-145) Potassium Level 4.5 MMOL/L (3.5-5.1) Chloride Level 104 MMOL/L (98-107) Carbon Dioxide Level 23 MMOL/L (21-32) Anion Gap 12 mmol/L (5-15) Blood Urea Nitrogen 18 mg/dL (7-18) Creatinine 0.8 MG/DL (0.55-1.30) Estimat Glomerular Filtration Rate > 60 mL/min (>60) Glucose Level 117 MG/DL (74-106) Calcium Level 9.1 MG/DL (8.5-10.1) Total Bilirubin 0.2 MG/DL (0.2-1.0) Aspartate Amino Transf (AST/SGOT) 40 U/L (15-37) Alanine Aminotransferase (ALT/SGPT) 72 U/L (12-78) Alkaline Phosphatase 86 U/L (46-116) Total Protein 7.5 G/DL (6.4-8.2) Albumin 3.9 G/DL (3.4-5.0) Globulin 3.6 g/dL Albumin/Globulin Ratio 1.1 (1.0-2.7) Lipase 96 U/L (73-393) Last Vital Signs Date Time Temp Pulse Resp B/P (MAP) Pulse Ox O2 Delivery O2 Flow Rate FiO2 08/29/19 14:30 99.5 115 20 142/89 95 Room Air Status: improved Disposition: HOME, SELF-CARE Condition: Stable Scripts No Active Prescriptions or Reported Meds Referrals: NON PHYSICIAN (PCP) Patient Instructions: Abdominal Pain, Adult Additional Instructions: Follow up with your primary care physician. Kirit Latham MD Sep 01, 2019 07:11
== END 2019-08-29 16:35 | disposition home or self-care (01) ==
LOC: EDBD 14:15 → EMR 14:45
DX: R10.13 Epigastric pain (principal); R06.02 Shortness of breath; G40.909 Epilepsy, unspecified, not intractable, without status epilepticus
CPT/HCPCS: 36415; 80053; 83690; 85025; 96361; 96374; 96375; J2405; J7030; S0028; Z7502; 99284

== ENCOUNTER 2019-08-30 01:17 | Emergency (ER) | payer OTHER ==
[~2019-08-30] VITALS: Ht 175.3 cm; Wt 65.8 kg
[2019-08-30 01:26] VITALS: BP 129/81
--- NOTE | 2019-08-30 01:45 | Emergency Room Report ---
History of Present Illness General Chief Complaint: Abdominal Pain Source: Patient, Medical Record Present Illness HPI This is a 29-year-old male with history of methamphetamine abuse. He presents with chief complaint abdominal pain. Onset for a day. Patient was here earlier with the same symptoms but after getting blood work and IV fluid he pulled out and left. He came back initially with complaint of abdominal pain. He told me he felt weak. Pain resolved. No nausea no vomiting. No diarrhea. Nothing made it better. Nothing made it worse. Denies any aggravating factor. Denies any trauma. No urinary complaint. Allergies: Coded Allergies: No Known Allergies (Unverified , 07/29/19) COVID-19 Screening Contact w/high risk pt: No Recent Travel to affected area: No Experienced COVID-19 symptoms?: No COVID-19 symptoms experienced: Shortness of Breath Patient History Past Medical History: see triage record, old chart reviewed Past Surgical History: none Pertinent Family History: none Social History: Reports: drug use Immunizations: other Reviewed Nursing Documentation: PMH: Agreed; PSxH: Agreed Nursing Documentation-PMH Hx Seizures: Yes Review of Systems Eye: Denies: eye pain, blurred vision ENT: Denies: ear pain, nose congestion, throat swelling Respiratory: Denies: cough, shortness of breath Cardiovascular: Denies: chest pain, palpitations Gastrointestinal: Reports: abdominal pain; Denies: diarrhea, nausea, vomiting Musculoskeletal: Denies: back pain, joint pain Skin: Denies: rash Neurological: Denies: headache, numbness Endocrine: Denies: increased thirst, increased urine Hematologic/Lymphatic: Denies: easy bruising All Other Systems: negative except mentioned in HPI Physical Exam Vital Signs Date Time Temp Pulse Resp B/P (MAP) Pulse Ox O2 Delivery O2 Flow Rate FiO2 08/30/19 01:20 98.1 113 18 129/81 (97) 96 Room Air Vitals with tachycardia Sp02 EP Interpretation: reviewed, normal General Appearance: well appearing, no apparent distress, alert Head: normocephalic, atraumatic Eyes: bilateral eye PERRL, bilateral eye EOMI ENT: hearing grossly normal, normal pharynx Neck: full range of motion, supple, no meningismus Respiratory: chest non-tender, lungs clear, normal breath sounds Cardiovascular #1: regular rate, rhythm, no murmur Gastrointestinal: normal bowel sounds, non tender, no mass, no organomegaly, no bruit, non-distended Musculoskeletal: back normal, normal range of motion, gait/station normal Psychiatric: mood/affect normal Medical Decision Making Diagnostic Impression: Primary Impression: Abdominal pain Qualified Codes: R10.84 - Generalized abdominal pain Additional Impression: Methamphetamine abuse ER Course Patient presents with abdominal pain. Resolved now. I suspect this is more of a psychiatric issue. He is eating and drinking here without any problem. Labs were from earlier was normal. I see no need to repeat. No need for CT scan. No evidence of any acute abdomen or obstruction. Last Vital Signs Date Time Temp Pulse Resp B/P (MAP) Pulse Ox O2 Delivery O2 Flow Rate FiO2 08/30/19 01:26 113 18 Room Air 08/30/19 01:26 98.1 129/81 96 Status: improved Disposition: HOME, SELF-CARE Condition: Stable Referrals: [facility],REFERRING (PCP) Patient Instructions: Abdominal Pain, Adult Additional Instructions: Stop using drugs. Follow-up with your doctor in 7 days. Return if worse. Colt Arias MD Aug 30, 2019 01:45
[2019-08-30 01:47] VITALS: BP 129/81
== END 2019-08-30 01:47 | disposition home or self-care (01) ==
LOC: EMR 01:38
DX: R10.84 Generalized abdominal pain (principal); F15.10 Other stimulant abuse, uncomplicated; G40.909 Epilepsy, unspecified, not intractable, without status epilepticus
CPT/HCPCS: 99281

== ENCOUNTER → 2019-08-30 | Emergency (ER) | payer OTHER ==
[~2019-08-30] VITALS: Ht 175.3 cm; Wt 77.1 kg
[~2019-08-30] MED LIST changes: +DICYCLOMINE HCL10 MG ORAL; +OMEPRAZOLE20 M2 ORAL; +ONDANSETRON ODT4 MG BC
[2019-08-30 15:40] VITALS: BP 122/77
--- NOTE | 2019-08-30 15:49 | Emergency Room Report ---
History of Present Illness General Chief Complaint: Nausea, Vomiting, and Diarrhea Source: Patient Present Illness HPI 29-year-old male with history of methamphetamine abuse here complaining of abdominal pain. Patient was seen at [facility] multiple times in the past week for similar complaint and was discharged earlier this morning. Blood work was done 2 days ago and all within normal limits. Patient is usually leaves AGAINST MEDICAL ADVICE. Patient does not recall last methamphetamine use. Not distressed. No fever and chills. Denies any fall or injury. Allergies: Coded Allergies: No Known Allergies (Unverified , 07/29/19) COVID-19 Screening Contact w/high risk pt: No Recent Travel to affected area: No Experienced COVID-19 symptoms?: No COVID-19 symptoms experienced: Shortness of Breath Patient History Past Medical History: see triage record Past Surgical History: unable to obtain Pertinent Family History: unable to obtain Social History: Reports: drug use - meth Reviewed Nursing Documentation: PMH: Agreed; PSxH: Agreed Nursing Documentation-PMH Past Medical History: No History, Except For Hx Seizures: Yes Review of Systems All Other Systems: negative except mentioned in HPI Physical Exam Vital Signs Date Time Temp Pulse Resp B/P (MAP) Pulse Ox O2 Delivery O2 Flow Rate FiO2 08/30/19 15:36 97.9 76 18 122/77 (92) 98 Room Air Sp02 EP Interpretation: reviewed General Appearance: no apparent distress, alert, GCS 15, non-toxic Head: normocephalic, atraumatic Eyes: bilateral eye normal inspection, bilateral eye PERRL ENT: normal ENT inspection Neck: normal inspection Respiratory: normal inspection Cardiovascular #1: normal inspection Gastrointestinal: non tender, soft Genitourinary: no CVA tenderness Musculoskeletal: back normal Neurologic: alert, oriented Psychiatric: other - Under influence of methamphetamine Skin: no rash Lymphatic: no adenopathy Medical Decision Making PA Attestation All my diagnosis and treatment plans were reviewed ad discussed with my supervising physician Dr. Palacios Homeless Attestation The treating physician has assessed and agrees that patient is medically stable for outpatient disposition Diagnostic Impression: Primary Impression: Amphetamine abuse ER Course 29-year-old male with history of methamphetamine abuse here complaining of abdominal pain. Patient was seen at [facility] multiple times in the past week for similar complaint and was discharged earlier this morning. Blood work was done 2 days ago and all within normal limits. Patient is usually leaves AGAINST MEDICAL ADVICE. Patient does not recall last methamphetamine use. Not distressed. No fever and chills. Denies any fall or injury. Ddx considered but are not limited to: generalized anxiety disorder, panic attack, depression with psychotic feature, bipolar disorder, drug overdose Vital signs: are WNL, pt. is afebrile H&PE are most consistent with: Amphetamine abuse ORDERS: none required at this time, the diagnosis is clinical ED INTERVENTIONS: None required at this time. DISCHARGE: At this time pt. is stable for d/c to home. Will provide printed patient care instructions, and any necessary prescriptions. Care plan and follow up instructions have been discussed with the patient prior to discharge. No further action needed or blood work as patient was just here repeatedly a few days ago and was discharged yesterday with similar complaint. Patient is homeless and reports that he comes here to stay here for several hours. Last Vital Signs Date Time Temp Pulse Resp B/P (MAP) Pulse Ox O2 Delivery O2 Flow Rate FiO2 08/30/19 15:36 97.9 76 18 122/77 (92) 98 Room Air Disposition: HOME, SELF-CARE Condition: Stable Scripts No Active Prescriptions or Reported Meds Patient Instructions: Stimulant Use Disorder-Methamphetamines Christianne Gregory Aug 30, 2019 15:49
[2019-08-30 15:52] VITALS: BP 126/79
== END | disposition home or self-care (01) ==
LOC: EMR 15:55
DX: F15.10 Other stimulant abuse, uncomplicated (principal); G40.909 Epilepsy, unspecified, not intractable, without status epilepticus
CPT/HCPCS: 99281

== ENCOUNTER 2020-01-18 22:11 | Emergency (ER) | payer OTHER ==
[~2020-01-18] VITALS: Ht 170.2 cm; Wt 68.0 kg
--- NOTE | 2020-01-18 22:15 | NUR ---
ED Nurse Note: Patient walked into the ED with c/o seizures this morning. Patient states he had 2 episodes of seizure this AM. Seizure is unwitnessed and lasted a few minutes per patient. Pt states he does not have any meds for seizure. Patient denies any head injury or trauma. Patient came in with crutches as he was admiited a few days ago in another hospital with leg problem. Patient is AAOX4. Placed on monitor bed. Placed on seizure precaution
--- NOTE | 2020-01-18 22:16 | NUR ---
ED Nurse Note: ERMD at bedside
[2020-01-18 22:30] VITALS: BP 118/72
[2020-01-18 23:18] LABS: BASOPHILS % (AUTO) 0.8 % (0.0-2.0); EOSINOPHILS % (AUTO) 3.9 % (0.0-3.0); HEMATOCRIT 37.2 % (42.0-52.0); HEMOGLOBIN 12.1 G/DL (14.2-18.0); MEAN CORPUSCULAR VOLUME 82 FL (80-99); MONOCYTES % (AUTO) 6.5 % (1.0-10.0); NEUTROPHILS % (AUTO) 52.8 % (45.0-75.0); PLATELET COUNT 295 K/UL (150-450); RED BLOOD COUNT 4.53 M/UL (4.70-6.10); RED CELL DISTRIBUTION WIDTH 12.9 % (11.6-14.8); WHITE BLOOD COUNT 6.6 K/UL (4.8-10.8)
[2020-01-18 23:24] LABS: ALANINE AMINOTRANSFERASE 48 U/L (12-78); ALBUMIN 3.4 G/DL (3.4-5.0); ALKALINE PHOSPHATASE 71 U/L (46-116); ANION GAP 10 mmol/L (5-15); ASPARTATE AMINO TRANSFERASE 33 U/L (15-37); BILIRUBIN,TOTAL 0.3 MG/DL (0.2-1.0); BLOOD UREA NITROGEN 18 mg/dL (7-18); CALCIUM 8.8 MG/DL (8.5-10.1); CARBON DIOXIDE 30 MMOL/L (21-32); CHLORIDE 101 MMOL/L (98-107); SODIUM 140 MMOL/L (136-145)
[2020-01-18] MEDS ORDERED: KEPPRA500 M4 ORAL (23:53)
[2020-01-19 00:09] VITALS: BP 124/78
--- NOTE | 2020-01-19 00:09 | NUR ---
ER DISCHARGE NOTE: Patient is cleared to be discharged per ERMD, pt is aox4, on room air, with stable vital signs. pt was given dc and prescription instructions, pt was able to verbalize understanding, pt id band and iv site removed without complications. pt is able to ambulate with crutches and was picked up by his brother in the waiting room. t. pt took all belongings.
--- NOTE | 2020-01-19 00:39 | Emergency Room Report ---
History of Present Illness General Chief Complaint: Seizure Source: Patient Present Illness HPI 29-year-old male presents ED for evaluation. States that he had a seizure today. Early in the morning and then this evening. [place] his head twitching. States he did not lose consciousness or fall to the ground. States that he does not take seizure medication. Has had happen in the past. Denies drug use or alcohol use. Denies any pain. No other aggravating relieving factors. Denies any other associated symptoms Allergies: Coded Allergies: No Known Allergies (Unverified , 07/29/19) COVID-19 Screening Contact w/high risk pt: No Recent Travel to affected area: No Experienced COVID-19 symptoms?: No COVID-19 symptoms experienced: Shortness of Breath COVID-19 Testing performed LABORATORY TECH: No Patient History Past Medical History: none Past Surgical History: none Pertinent Family History: none Social History: Reports: drug use; Denies: smoking, alcohol use Immunizations: UTD Reviewed Nursing Documentation: PMH: Agreed; PSxH: Agreed Nursing Documentation-PMH Hx Seizures: Yes Review of Systems All Other Systems: negative except mentioned in HPI Physical Exam Vital Signs Date Time Temp Pulse Resp B/P (MAP) Pulse Ox O2 Delivery O2 Flow Rate FiO2 01/18/20 22:14 98.4 76 16 113/67 (82) 97 Room Air Sp02 EP Interpretation: reviewed, normal General Appearance: no apparent distress, alert, GCS 15, non-toxic Head: normocephalic, atraumatic Eyes: bilateral eye normal inspection, bilateral eye PERRL ENT: hearing grossly normal, normal pharynx, no angioedema, normal voice Neck: full range of motion, supple/symm/no masses Respiratory: chest non-tender, lungs clear, normal breath sounds, speaking full sentences Cardiovascular #1: regular rate, rhythm, no edema Cardiovascular #2: 2+ carotid (R), 2+ carotid (L), 2+ radial (R), 2+ radial (L) , 2+ dorsalis pedis (R), 2+ dorsalis pedis (L) Gastrointestinal: normal bowel sounds, non tender, soft, non-distended, no guarding, no rebound Rectal: deferred Genitourinary: normal inspection, no CVA tenderness Musculoskeletal: back normal, normal range of motion, gait/station normal, non- tender Neurologic: alert, motor strength/tone normal, oriented x3, sensory intact, responsive, speech normal Psychiatric: judgement/insight normal, memory normal, mood/affect normal, no suicidal/homicidal ideation Reflexes: 3+ bicep (R), 3+ bicep (L), 3+ tricep (R), 3+ tricep (L), 3+ knee (R) , 3+ knee (L) Lymphatic: no adenopathy Medical Decision Making Diagnostic Impression: Primary Impression: Seizure disorder ER Course Hospital Course 29 yo M presents with convulsions. no LOC. Differential diagnosis includes- breakthrough seizure, alcohol abuse, noncompliance with medication Clinical course Patient placed on stretcher. Initial history and physical I ordered labs, IV fluids, CT brain Labs-electrolytes okay, no leukocytosis, hemoglobin/hematocrit stable. CT Brain ok And observed in ED. No focal deficits. Vitals stable. I reviewed EMR patient has been here multiple times for substance abuse related tremors versus seizure. Discussed findings with patient. We will treat with low-dose Keppra. Patient would benefit from outpatient neurology evaluation. I will provide referrals. Safe for discharge with close outpatient follow-up. patient does not drive Diagnosis - seizure disorder stable and discharged to home. Followup with PMD. Return to ED if symptoms recur or worsen Laboratory Tests Test 01/18/20 23:01 White Blood Count 6.6 K/UL (4.8-10.8) Red Blood Count 4.53 M/UL (4.70-6.10) L Hemoglobin 12.1 G/DL (14.2-18.0) L Hematocrit 37.2 % (42.0-52.0) L Mean Corpuscular Volume 82 FL (80-99) Mean Corpuscular Hemoglobin 26.6 PG (27.0-31.0) L Mean Corpuscular Hemoglobin Concent 32.5 G/DL (32.0-36.0) Red Cell Distribution Width 12.9 % (11.6-14.8) Platelet Count 295 K/UL (150-450) Mean Platelet Volume 6.4 FL (6.5-10.1) L Neutrophils (%) (Auto) 52.8 % (45.0-75.0) Lymphocytes (%) (Auto) 36.0 % (20.0-45.0) Monocytes (%) (Auto) 6.5 % (1.0-10.0) Eosinophils (%) (Auto) 3.9 % (0.0-3.0) H Basophils (%) (Auto) 0.8 % (0.0-2.0) Sodium Level 140 MMOL/L (136-145) Potassium Level 4.0 MMOL/L (3.5-5.1) Chloride Level 101 MMOL/L (98-107) Carbon Dioxide Level 30 MMOL/L (21-32) Anion Gap 10 mmol/L (5-15) Blood Urea Nitrogen 18 mg/dL (7-18) Creatinine 1.0 MG/DL (0.55-1.30) Estimat Glomerular Filtration Rate > 60 mL/min (>60) Glucose Level 106 MG/DL (74-106) Calcium Level 8.8 MG/DL (8.5-10.1) Total Bilirubin 0.3 MG/DL (0.2-1.0) Aspartate Amino Transf (AST/SGOT) 33 U/L (15-37) Alanine Aminotransferase (ALT/SGPT) 48 U/L (12-78) Alkaline Phosphatase 71 U/L (46-116) Total Protein 6.9 G/DL (6.4-8.2) Albumin 3.4 G/DL (3.4-5.0) Globulin 3.5 g/dL Albumin/Globulin Ratio 1.0 (1.0-2.7) Salicylates Level 0.4 ug/mL (2.8-20) L Acetaminophen Level < 2 MCG/ML (10-30) L Serum Alcohol < 3 mg/dL CT/MRI/US Diagnostic Results CT/MRI/US Diagnostic Results : Imaging Test Ordered: CT Head Impression no acute process Last Vital Signs Date Time Temp Pulse Resp B/P (MAP) Pulse Ox O2 Delivery O2 Flow Rate FiO2 01/19/20 00:09 98.0 85 18 124/78 98 Room Air Status: improved Disposition: HOME, SELF-CARE Condition: Stable Scripts Levetiracetam (KEPPRA) 500 Mg Tablet 500 MG ORAL EVERY 12 HOURS, #60 TAB 0 Refills Prov: Diego Fernando MD 01/18/20 [facility] Patient Instructions: Seizure, Adult Diego Fernando MD Jan 19, 2020 00:39
--- NOTE | 2020-01-19 06:33 | Diagnostic Imaging Report ---
EXAM: CT Head Without Intravenous Contrast CLINICAL HISTORY: SZ TECHNIQUE: Axial computed tomography images of the head/brain without intravenous contrast. CTDI is 53.4 mGy and DLP is 983.0 mGy-cm. One or more of the following dose reduction techniques were used: automated exposure control, adjustment of the mA and/or kV according to patient size, use of iterative reconstruction technique. COMPARISON: 07/29/2019 FINDINGS: Brain: Unremarkable. No hemorrhage. No significant white matter disease. No edema. Ventricles: Unremarkable. No ventriculomegaly. Bones/joints: Unremarkable. No acute fracture. Soft tissues: Unremarkable. Sinuses: Unremarkable as visualized. No acute sinusitis. Mastoid air cells: Unremarkable as visualized. No mastoid effusion. IMPRESSION: 1. No acute intracranial abnormality. 2. Unremarkable study.
== END 2020-01-19 00:17 | disposition home or self-care (01) ==
LOC: EMR 22:30
DX: G40.909 Epilepsy, unspecified, not intractable, without status epilepticus (principal)
CPT/HCPCS: 36415; 70450; 80053; 85025; 96360; G0480; G0481; J7030; Z7502; 99284

== ENCOUNTER 2020-01-23 12:00 | Emergency (ER) | payer OTHER ==
[~2020-01-23] VITALS: Ht 170.2 cm; Wt 77.1 kg
[~2020-01-23 12:00] MED LIST changes: +KEPPRA500 M4 ORAL
--- NOTE | 2020-01-23 12:02 | NUR ---
ED Nurse Note: Pt brought in by ambulance from the [facility] d/t seizure. Seizure was unwitnessed. Pt denies injury to head or body. Respirations even and unlabored on room air. Vitals stable as documented. A+Ox4, speaking in full sentences. Seizure precautions in place
[2020-01-23 12:05] VITALS: BP 119/72
[2020-01-23] MEDS ORDERED: levETIRAcetam 1,000mg/NS100ml 100 ML IVPB ONE (12:30)
--- NOTE | 2020-01-23 12:33 | NUR ---
ED Nurse Note: BLOOD COLLECTED and sent to lab
--- NOTE | 2020-01-23 12:33 | Emergency Room Report ---
History of Present Illness General Chief Complaint: Seizure Present Illness HPI 29-year-old male homeless with history of "convulsions" not currently on any medications here with a possible seizure. Patient says that he was walking and says that he lost consciousness and was seen convulsing on the ground by onlookers. He does not recall this incident. Has had seizures before but is noncompliant with medications. No headaches, vision changes, fevers, chills, chest pain, palpitation, shortness of breath, back pain, abdominal pain, nausea , vomiting, diarrhea, dysuria. Allergies: Coded Allergies: No Known Allergies (Unverified , 07/29/19) COVID-19 Screening Contact w/high risk pt: No Recent Travel to affected area: No Experienced COVID-19 symptoms?: No COVID-19 symptoms experienced: Shortness of Breath COVID-19 Testing performed IT SECURITY MANAGER: No Nursing Documentation-PMH Hx Seizures: Yes Physical Exam Vital Signs Date Time Temp Pulse Resp B/P (MAP) Pulse Ox O2 Delivery O2 Flow Rate FiO2 01/23/20 11:56 98.4 82 17 112/66 (81) 99 Room Air Medical Decision Making Diagnostic Impression: Primary Impression: Seizure disorder Additional Impression: Epileptic seizure, generalized ER Course EKG: EKG: NSR, no ischemia, intervals WNL. No ectopy Rhythm strip: patient monitored for arrhythmias - no malignant dysrhythmias, runs of PVCs, nor pauses noted Head CT: No acute abnormalities 29-year-old male with history of seizure disorder noncompliant with medications here after a witnessed generalized tonic-clonic seizure. EKG was unremarkable. Patient was awake and alert on arrival to the emergency department. He was tolerating p.o. intake throughout his stay. CBC and CMP were unremarkable. Lactate 2. CT head normal. Patient given 1 g of Keppra and a prescription for 500 mg Keppra to take twice daily. He will follow-up with primary care. Discharged in stable condition. Laboratory Tests Test 01/23/20 12:25 White Blood Count 5.9 K/UL (4.8-10.8) Red Blood Count 4.54 M/UL (4.70-6.10) L Hemoglobin 12.0 G/DL (14.2-18.0) L Hematocrit 37.8 % (42.0-52.0) L Mean Corpuscular Volume 83 FL (80-99) Mean Corpuscular Hemoglobin 26.4 PG (27.0-31.0) L Mean Corpuscular Hemoglobin Concent 31.7 G/DL (32.0-36.0) L Red Cell Distribution Width 13.1 % (11.6-14.8) Platelet Count 296 K/UL (150-450) Mean Platelet Volume 6.2 FL (6.5-10.1) L Neutrophils (%) (Auto) 57.7 % (45.0-75.0) Lymphocytes (%) (Auto) 31.1 % (20.0-45.0) Monocytes (%) (Auto) 7.7 % (1.0-10.0) Eosinophils (%) (Auto) 2.7 % (0.0-3.0) Basophils (%) (Auto) 0.8 % (0.0-2.0) Sodium Level 139 MMOL/L (136-145) Potassium Level 3.6 MMOL/L (3.5-5.1) Chloride Level 102 MMOL/L (98-107) Carbon Dioxide Level 29 MMOL/L (21-32) Anion Gap 8 mmol/L (5-15) Blood Urea Nitrogen 15 mg/dL (7-18) Creatinine 0.9 MG/DL (0.55-1.30) Estimated Glomerular Filtration Rate > 60 mL/min (>60) Glucose Level 110 MG/DL (74-106) H Lactic Acid Level 2.00 mmol/L (0.4-2.0) Calcium Level 9.2 MG/DL (8.5-10.1) Total Bilirubin 0.6 MG/DL (0.2-1.0) Aspartate Amino Transferase (AST) 35 U/L (15-37) Alanine Aminotransferase (ALT) 48 U/L (12-78) Alkaline Phosphatase 71 U/L (46-116) Total Protein 7.2 G/DL (6.4-8.2) Albumin 3.6 G/DL (3.4-5.0) Globulin 3.6 g/dL Albumin/Globulin Ratio 1.0 (1.0-2.7) Last Vital Signs Date Time Temp Pulse Resp B/P (MAP) Pulse Ox O2 Delivery O2 Flow Rate FiO2 01/23/20 11:56 98.4 82 17 112/66 (81) 99 Room Air Scripts Levetiracetam (KEPPRA) 500 Mg Tablet 500 MG ORAL EVERY 12 HOURS, #60 TAB 0 Refills Prov: Nelson Duval M.D. 01/23/20 Nelson Duval M.D. Jan 23, 2020 12:33
[2020-01-23 12:55] LABS: BASOPHILS % (AUTO) 0.8 % (0.0-2.0); EOSINOPHILS % (AUTO) 2.7 % (0.0-3.0); HEMATOCRIT 37.8 % (42.0-52.0); LYMPHOCYTES % (AUTO) 31.1 % (20.0-45.0); MEAN CORPUSCULAR VOLUME 83 FL (80-99); MONOCYTES % (AUTO) 7.7 % (1.0-10.0); NEUTROPHILS % (AUTO) 57.7 % (45.0-75.0); PLATELET COUNT 296 K/UL (150-450); RED BLOOD COUNT 4.54 M/UL (4.70-6.10); RED CELL DISTRIBUTION WIDTH 13.1 % (11.6-14.8); WHITE BLOOD COUNT 5.9 K/UL (4.8-10.8)
[2020-01-23 13:00] LABS: ANION GAP 8 mmol/L (5-15); BLOOD UREA NITROGEN 15 mg/dL (7-18); CALCIUM 9.2 MG/DL (8.5-10.1); CARBON DIOXIDE 29 MMOL/L (21-32); CHLORIDE 102 MMOL/L (98-107); CREATININE 0.9 MG/DL (0.55-1.30); POTASSIUM 3.6 MMOL/L (3.5-5.1); SODIUM 139 MMOL/L (136-145)
[2020-01-23 13:04] LABS: ALANINE AMINOTRANSFERASE 48 U/L (12-78); ALBUMIN 3.6 G/DL (3.4-5.0); ALKALINE PHOSPHATASE 71 U/L (46-116); ASPARTATE AMINO TRANSFERASE 35 U/L (15-37); BILIRUBIN,TOTAL 0.6 MG/DL (0.2-1.0)
--- NOTE | 2020-01-23 13:24 | Diagnostic Imaging Report ---
EXAM: CT Head Without Intravenous Contrast CLINICAL HISTORY: AMS TECHNIQUE: Axial computed tomography images of the head/brain without intravenous contrast. CTDI is 53.4 mGy and DLP is 965.4 mGy-cm. One or more of the following dose reduction techniques were used: automated exposure control, adjustment of the mA and/or kV according to patient size, use of iterative reconstruction technique. COMPARISON: No relevant prior studies available. FINDINGS: Brain: No hemorrhage. No edema. Ventricles: No ventriculomegaly. Bones/joints: No acute fracture. Soft tissues: Unremarkable. Sinuses: No acute sinusitis. Mastoid air cells: No mastoid effusion. IMPRESSION: No acute intracranial process.
[2020-01-23] MEDS ORDERED: KEPPRA500 M4 ORAL (13:51)
[2020-01-23 14:10] VITALS: BP 127/79
--- NOTE | 2020-01-23 14:10 | NUR ---
Homeless Discharge: Patient is being discharged from medical care. Awake, alert and oriented x4. After care instructions, including referral to community resources were given. Patient verbalized understanding of After care instructions; at this time patient does not request medications, equipment or placement. Sandwiches and juices provided for patient. Clothing adequate for weather. Patient signed patient consent in the medical record for patient destination upon discharge. Pt refused to disclose location of discharge. All medical devices such as IV and ID band were removed. Patient ambulated out with all personal belongings with steady gait.
== END 2020-01-23 14:10 | disposition home or self-care (01) ==
LOC: EDBD 12:00 → EMR 14:10
DX: G40.909 Epilepsy, unspecified, not intractable, without status epilepticus (principal); Z91.14 Patient's other noncompliance with medication regimen
CPT/HCPCS: 36415; 70450; 80053; 83605; 85025; 93005; 96374; J1953; Z7502; 99284